=== PATIENT | female | born 1930 | race Caucasian/White ===

== ENCOUNTER 2016-08-09 14:50 | Inpatient (IN) | payer OTHER ==
[~2016-08-09] VITALS: Ht 157.5 cm; Wt 68.2 kg
--- NOTE | ~2016-08-09 | HC ---
[facility] [place] [address] CONSULTATION Name: JEIMY HUTCHINSON Room #: 311-P ADM IN M.R.#: [id number] Admission: 08/09/16 Attend Phys: Ap Oliveira MD Discharge: Date of : 31 Report #: [id number] THIS REPORT FOR: //name// CC: Ap Erwin MD DATE OF SERVICE: 08/10/2016 HISTORY OF PRESENT ILLNESS: The patient is an 86-year-old female with recent weakness and lightheadedness was evaluated by her primary physician, Dr. Bryant Erwin and lab work showed hemoglobin of 6.2. She was therefore sent to the emergency room for further evaluation. Hemoglobin on admission here was 6.5. She denies any obvious bright red blood per rectum or melena. She denies any abdominal pain. No previous history of GI bleed. No significant history of anemia in the past. She states her last colonoscopy was approximately 10 years ago. She believes she had polyps at that time. No previous history of upper endoscopy. She denies any NSAID use. She denies any dysphagia or odynophagia. There is no family history of colon cancer. Her weight has been stable. She denies any significant heartburn symptoms. She currently denies any chest pain or shortness of breath. No fevers or chills. PAST MEDICAL HISTORY: Hypertension, hyperlipidemia, diabetes type 2, history of hiatal hernia, asthma, osteoporosis, bilateral cataracts. MEDICATIONS ON ADMISSION: Advair, Cozaar, Crestor, Onglyza, Caltrate and Centrum Complete. REVIEW OF SYSTEMS: As per HPI. FAMILY HISTORY: Negative for colon cancer or inflammatory bowel disease. SOCIAL HISTORY: She denies any tobacco or alcohol use. PHYSICAL EXAMINATION: VITAL SIGNS: Temperature is 98.4, pulse 80, blood pressure 162/64 and respiratory rate is 16. GENERAL: She is alert and oriented times 3 in no acute distress. HEENT: Sclerae nonicteric. Oropharynx clear. NECK: Supple, without lymphadenopathy. CARDIOVASCULAR: Regular rate and rhythm. CHEST: Clear to auscultation bilaterally. ABDOMEN: Soft. She is nontender, nondistended, normoactive bowel sounds. EXTREMITIES: No cyanosis, clubbing or edema. [address] [address] CONSULTATION Name: JEIMY HUTCHINSON Room #: 311-P ADM IN M.R.#: [id number] Admission: 08/09/16 Attend Phys: Ap Oliveira MD Discharge: Date of : 31 Report #: [id number] LABORATORY DATA: Sodium today is 158, yesterday, her sodium was 138; potassium 3.7, chloride 94, bicarbonate 17, BUN 21, creatinine 1.1, calcium 7.5. Iron 18, percent sat is 4, TIBC is 438. INR 1.0. WBC is 7.1, hemoglobin 9.0, this is status post transfusions; MCV is 74.8, yesterday was 69.3; platelet count is 254. ASSESSMENT AND PLAN: Anemia, Hemoccult positive stool. The patient denies any obvious bright red blood per rectum or melena. Would recommend proceeding with an EGD and colonoscopy in the near future; however, her sodium today is 158, therefore, we would need to correct this initially. This may be a lab error as well. The plan will be for regular diet today, correct electrolytes and then plan on prepping tomorrow for colonoscopy and EGD on Friday. In the meantime, continue to monitor hemoglobin. Continue PPI therapy. Thank you for allowing me to participate in her care. <ELECTRONICALLY SIGNED> By: Anton Valdes MD 08/11/16 1217 1125 2232 Anton Valdes MD /nt
--- NOTE | ~2016-08-09 | 2DMMODE ---
[address] [place] [address] 2 D/M-MODE ECHOCARDIOGRAM Name: JEIMY HUTCHINSON Room #: 311-P ADM IN M.R.#: [id number] Admission: 08/09/16 Attend Phys: Juanito Santos, Discharge: Date of : 31 Date of Service: 08/22/16 1529 Report #: [id number] THIS REPORT FOR: //name// APPROVED REPORT Study performed: 08/22/2016 13:38:49 EXAM: Comprehensive 2D, Doppler, and color-flow Echocardiogram Patient Location: Bedside Room #: 311 Status: routine Other Information Study Quality: Adequate Indications Abnormal ECG Hypertension/HDD 2D Dimensions RVDd: 37.15 mm LVEF(%): 59.83 (>50%) IVSd: 8.86 (7-11mm) LVOT Diam: 19.90 (18-24mm) LVDd: 53.17 mm PWd: 8.58 (7-11mm) Ascending Ao: 29.15 (22-36mm) LVDs: 36.09 (25-40mm) Aortic Root: 27.07 mm Alexander's LVEF: 59.83 % Volumes Left Atrial Volume (Systole) Single Plane 4CH: 50.29 mL Single Plane 2CH: 63.75 mL LA ESV Index: 37.00 mL/m2 Aortic Valve AoV Peak Riccardo.: 1.78 m/s AO Peak Gr.: 12.74 mmHg LVOT Max P.25 mmHg LVOT Max V: 1.25 m/s SHERI Vmax: 2.18 cm2 AI Vmax: 4.64 m/s AI Ward: 3.31 m/s2 AI PHT: 407.39 ms Mitral Valve E/A Ratio: 0.5 MV Decel. Time: 235.65 ms [facility] [place] [address] 2 D/M-MODE ECHOCARDIOGRAM Name: HUTCHINSONJEIMY Room #: 311-P ADM IN M.R.#: [id number] Admission: 08/09/16 Attend Phys: Juanito Santos, Discharge: Date of : 31 Date of Service: 08/22/16 1529 Report #: [id number] MV E Max Riccardo.: 0.68 m/s MV A Riccardo.: 1.34 m/s MV PHT: 68.34 ms IVRT: 87.66 ms Pulmonary Valve PV Peak Riccardo.: 1.46 m/s PV Peak Gr.: 8.57 mmHg Pulmonary Vein P Vein S: 0.68 m/s P Vein A: 0.48 m/s P Vein D: 0.53 m/s P Vein S/D Ratio: 1.28 Tricuspid Valve TR Peak Riccardo.: 3.51 m/s RAP Estimate: 5.00 mmHg TR Peak Gr.: 49.18 mmHg RVSP: 54.00 mmHg Left Ventricle The left ventricle is normal size. There is normal LV segmental wall motion. There is normal left ventricular wall thickness. The left ventricular systolic function is normal. The left ventricular ejection fraction is within the normal range. LVEF is 60%. Mild diastolic dysfunction is present (impaired relaxation pattern). Right Ventricle The right ventricle is normal size. The right ventricular systolic function is normal. Atria Left atrium is dilated. The right atrium size is normal. Aortic Valve Aortic valve is mildly calcified. Mild aortic regurgitation. There is no aortic valvular stenosis. Mitral Valve Mitral valve leaflets are mildly calcified. No mitral regurgitation. No evidence of mitral valve stenosis. Tricuspid Valve The tricuspid valve is normal in structure. There is mild tricuspid regurgitation. The right atrial pressure is estimated at 5 mmHg. There is moderate pulmonary hypertension with an estimated PAP of 54 mmHg. [place] [id number] 2 D/M-MODE ECHOCARDIOGRAM Name: JEIMY HUTCHINSON Room #: 311-P [place] [facility]#: [id number] Admission: 08/09/16 Attend Phys: Juanito Santos, Discharge: Date of : 31 Date of Service: 08/22/16 1529 Report #: [id number] Pulmonic Valve The pulmonary valve is normal in structure. Trace pulmonic regurgitation. Great Vessels The aortic root is normal in size. The ascending aorta is normal in size. IVC is normal in size and collapses >50% with inspiration. Pericardium There is no pericardial effusion. <Conclusion> Mild to moderate aortic regurgitation. The left ventricular ejection fraction is within the normal range. LVEF 60%. There is normal LV segmental wall motion. Mild diastolic dysfunction is present (impaired relaxation pattern). Aortic valve is mildly calcified. Mild aortic regurgitation. No stenosis Mitral valve leaflets are mildly calcified. No mitral regurgitation. There is moderate pulmonary hypertension with an estimated pulmonary artery pressure of 55 mmHg. There is no pericardial effusion. <ELECTRONICALLY SIGNED> By: Alban Bey MD, FACC 08/22/16 1529 1529 1529 Alban Bey MD, FACC /INF
--- NOTE | ~2016-08-09 | HC ---
[facility] [place] [address] CONSULTATION Name: JEIMY HUTCHINSON Room #: 428-P ADM IN M.R.#: [id number] Admission: 08/09/16 Attend Phys: Juanito Santos MD Discharge: Date of : 31 Report #: [id number] THIS REPORT FOR: //name// CC: Juanito Erwin HISTORY OF PRESENT ILLNESS: The patient is an 86-year-old white female with hypertension, elevated lipids, diabetes mellitus type 2 was admitted with a low hemoglobin. EGD showed severe esophageal ring, which was dilated. Colonoscopy, however, showed a colonic mass ascending colon, and she was diagnosed with adenocarcinoma. She underwent laparoscopic right hemicolectomy on August 14. Postoperatively, they were incidentally noted pulmonary emboli and she underwent IVC filter. No anticoagulation secondary to the recent surgery. Hematology is involved. She had some acute renal insufficiency that has been monitored as well. She does have generalized weakness and debilitation and we are seeing her in rehabilitation medicine consultation. PAST MEDICAL HISTORY: Includes diabetes mellitus, hypertension, elevated lipids. 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 Also includes hiatal hernia, asthma, and elevated cholesterol. ALLERGIES: PENICILLIN. PAST SURGICAL HISTORY: Includes D and C, colonoscopy, bilateral cataract implants. HABITS: Nonsmoker, no alcohol. SOCIAL HISTORY: Lives in a house alone, five steps in, 12 inside. Did not utilize gait aids. There is a son and daughter that can be assisting her at home when she is ready to return back home. REVIEW OF SYSTEMS: Complains of diarrhea with attempting to get out. Did not offer any complaints of chest pain, shortness of breath, abdominal discomfort. Complains of generalized weakness. No focal extremity pain complaints. No complaints of headache. PHYSICAL EXAMINATION: GENERAL: An 86-year-old white female appeared somewhat younger than stated age. She was pleasant, alert, oriented, appropriate. VITAL SIGNS: Last recorded temperature 98.8, pulse 95, respirations 18, blood pressure 139/73. Facies are symmetric. Nasal prong O2 is in place at 2 liters. ABDOMEN: Dressed. EXTREMITIES: She has functional range of motion of both upper extremities with strength of grade 4- to 4/5. DTRs are trace to 1. Lower extremities, no focal calf swelling, functional range of motion with strength grade 4-/5. DTRs are trace to 1. Tone appeared to be intact. She is min assist with sit to stand. [address] [address] CONSULTATION Name: JEIMY HUTCHINSON Room #: 428-P ADM IN M.R.#: [id number] Admission: 08/09/16 Attend Phys: Juanito Santos MD Discharge: Date of : 31 Report #: [id number] She has ambulated up to 50 feet contact guard with a front-wheeled walker. ASSESSMENT: An 86-year-old white female with the following problem list: 1. Medical complexity with generalized debilitation. 2. Adenocarcinoma status post laparoscopic right hemicolectomy, July 2016. 3. Pulmonary embolism status post IVC filter. Plan is to start anticoagulation, but hemoglobin needs to stabilize first. 4. Iron deficiency anemia. 5. Acute renal insufficiency, improving. 6. Diabetes mellitus type 2. 7. Hypertension. 8. Asthma. 9. Diarrhea, rule out Clostridium difficile. PLAN: Therapies are working with her to improve her strength and endurance, independence with mobility and ADLs. Insurance will need to be checked regarding rehab therapy options. ADDENDUM: The patient is noted to be out of network for our acute [address] [place] [address] inpatient rehab man. Case management is working on other options. Thank you for asking us to assist in this patient's care. <ELECTRONICALLY SIGNED> By: Pritesh Wiley MD 08/23/16 1556 1557 0404 Pritesh Wiley MD /nt
--- NOTE | ~2016-08-09 | S ---
[facility] [address] [employer] [place] [address] SURGICAL PATH RPT PROCEDURE Name: JEIMY HUTCHINSON Room #: 311-P ADM IN M.R.#: [id number] Admission: 08/09/16 Date of : 31 Discharge: Report #: [id number] Path Case #: [id number] PATHOLOGY REPORT COLLECTION DATE: 08/14/2016 RECEIVED DATE: 08/15/2016 SUBMITTING PHYS: Dr. Teddy Chowdhury OTHER PHYS: Dr. Ap Erwin SPECIMEN(S) RECEIVED: A.Right hemicolectomy * * * * * * * * * * * * FINAL DIAGNOSIS: A. Large intestine, terminal ileum and appendix, right hemicolectomy: - INVASIVE MODERATELY DIFFERENTIATED COLONIC ADENOCARCINOMA INVADING THROUGH THE VISCERAL SEROSA. - Separate tubular adenoma without high grade dysplasia. - Appendix showing a sessile serrated adenoma without dysplasia. - Margins widely free of dysplasia or malignancy; closest proximal margin is 11.2 cm away. -THREE LYMPH NODES WITH METASTATIC CARCINOMA OF SIXTEEN SAMPLED (06/13) SYNOPTIC CANCER STAGING REPORT SPECIMEN Specimen: Terminal ileum Cecum Appendix Ascending colon Procedure: Right hemicolectomy TUMOR Primary Tumor Site: Right (ascending) colon Histologic Type: Adenocarcinoma Histologic Grade: Low-grade (well differentiated to moderately differentiated) Tumor Size: Greatest dimension (cm): 4.3 Additional Dimension (cm): 3.2 Tumor Deposits: Not identified Tumor Extent Site(s) of Direct Extent of Tumor: None identified Microscopic Tumor Extension: Tumor penetrates to the surface of the visceral peritoneum (serosa) Macroscopic Tumor Perforation: Present Accessory Tumor Findings [facility] [address] [place] [address] SURGICAL PATH RPT PROCEDURE Name: JEIMY HUTCHINSON Room #: 311-P ADM IN M.R.#: [id number] Admission: 08/09/16 Date of : 31 Discharge: Report #: [id number] Path Case #: [id number] Lymph-Vascular Invasion: Present Perineural Invasion: Not identified MARGINS All margins uninvolved by invasive carcinoma Distance of Invasive Carcinoma from Closest Margin: Specify (cm): 2.4 Specify Margin: Circumferential (Radial) or Mesenteric For Resection Specimens Only Proximal Margin: Uninvolved by invasive carcinoma Distance of Tumor from Margin: Specify (cm): 11.2 Distal Margin: Uninvolved by invasive carcinoma Distance of Tumor from Margin (required only for rectal tumors): Specify (cm): 19 Circumferential (Radial) Margin: Not applicable Mesenteric Margin: Uninvolved by invasive carcinoma Distance of Tumor from Margin: Specify (cm): 2.4 LYMPH NODES Regional Lymph Nodes: Number of Lymph Nodes Examined: Specify number: 16 Number of Lymph Nodes Involved: Specify number: 3 STAGE (PTNM) Primary Tumor (pT): pT4a: Tumor penetrates the visceral peritoneum Regional Lymph Nodes (pN): pN1b: Metastasis in 2 to 3 regional lymph nodes PATHOLOGIST: Sharita Hoffman M.D. REPORT ELECTRONICALLY SIGNED BY: Sharita Hoffman M.D. DATE/TIME: 08/16/2016 17:25 * * * * * * * * * * * * GROSS PATHOLOGY: The specimen is received in formalin, labeled "[facility] hemicolectomy" is a segment of small bowel (5.5 cm in length by 4.0 cm in circumference) with attached colon (34.2 cm in length by 7.2 cm in circumference) and unremarkable appendix (6.2 cm in length by 0.8 and 1 diameter). The serosa is soares-pink, smooth and displays creeping adipose tissue on the proximal colon segment. The mesentery runs the entire length of the specimen and measures up to 4.4 cm in thickness. Adjacent to the creeping adipose tissue, on the mesentery, is a 2 x 1.2 cm focal area of [place] [id number] SURGICAL PATH RPT PROCEDURE Name: JEIMY HUTCHINSON Room #: 311-P [facility] IN M.R.#: [id number] Admission: 08/09/16 Date of : 31 Discharge: Report #: [id number] Path Case #: [id number] area is 11.2 cm from the proximal margin and widely free of the distal margin. The specimen is opened to reveal a soares-pink mucosa undulating folds and a 4.3 x 3.2 cm semi-circumferential ulcerated lesion located 10.6 cm from the proximal margin, 2.4 cm from the mesenteric margin, approaches the puckered area on the mesentery and is widely free of the distal margin. Sectioning through the lesion reveals invasion through the muscularis propria and into the adjacent mesentery. Located 1.4 cm distal to the ulcerated lesion is a 0.6 x 0.5 x 0.5 cm sessile lesion which is grossly confined to the superficial mucosa. There is a 2 x 1.4 cm, well-demarcated perforation located 2.2 cm distal to the ulcerated lesion. Identified within the mesentery are possible lymph nodes ranging in size from 0.3 x 0.2 x 0.2 up to 0.9 x 0.5 x 0.4 cm. Sectioning through the appendix reveals a diffusely patent lumen. Also received in the same container is a piece of omentum measuring 28.4 x 10.5 x 2.0 cm. Sectioning through the omentum reveals diffuse soft, lobular parenchyma. Section code: A1-proximal margin, A2-distal margin, A3-mesenteric margin, A4-puckered mesenteric lesion, A5-lesion with adjacent mesentery, A6-lesion with adjacent normal mucosa A7-polypoid lesion entirely submitted, A8-retail service representative sections adjacent to perforation, A9-retail service representative sections of appendix, A10-6 possible lymph nodes, A11-6 possible lymph nodes, A12-one possible lymph node. (GAY; 08/15/2016) CLINICAL HISTORY: Colon mass. INITIAL CPT CODE(S): A; 25479 Professional services performed by [employer] at [facility] [address] [place] [address] Technical services performed by [employer] at [address] [place] [address], [address], [place] [address]. [facility] [address] [address] PHONE: [phone] DIRECTOR: Ketan Ford M.D. * * * END OF REPORT * * *
--- NOTE | ~2016-08-09 | EKG ---
[address] [address] ELECTROCARDIOGRAM REPORT Name: JEIMY HUTCHINSON Room #: 311-P ADM IN M.R.#: [id number] Admission: 08/09/16 Attend Phys: Ap Oliveira MD Discharge: Date of : 31 Report #: [id number] THIS REPORT FOR: //name// [facility] ED Test Date: 2016-08-09 Test Time: 15:49:49 Pat Name: JEIMY HUTCHINSON Department: Room: [facility] Gender: F [employer] Professor: TIMOTHY : 1930 Requested By: Teddy Gracia Order Number: [id number] MD: Otilio Pate Measurements Intervals [place] Rate: 86 P: 31 IN: 158 QRS: 13 QRSD: 129 T: 27 QT: 393 QTc: 470 Interpretive Statements Sinus rhythm Right bundle branch block Borderline ST elevation, anterior leads Compared to ECG 02/21/2012 07:55:45 Right bundle-branch block now present ST (T wave) deviation now present Electronically Signed On 08-12-2016 8:28:56 CDT by Otilio Pate [email or web address] <ELECTRONICALLY SIGNED> By: Otilio Pate MD 08/12/16 0828 1549 1549 Otilio Pate MD /EPI
--- NOTE | ~2016-08-09 | O ---
[facility] [place] [address] OPERATIVE REPORT Name: JEIMY HUTCHINSON Room #: 311-P ADM IN M.R.#: [id number] Admission: 08/09/16 Attend Phys: Juanito Santos MD Discharge: Date of : 31 Report #: [id number] THIS REPORT FOR: //name// CC: Juanito Erwin DATE OF SERVICE: 08/14/2016 PREOPERATIVE DIAGNOSES: Right colon mass, newly diagnosed adenocarcinoma. POSTOPERATIVE DIAGNOSES: Right colon mass, newly diagnosed adenocarcinoma. SURGEON: Teddy Chowdhruy MD [employer] OPERATOR: Beba Luna, nurse practitioner. PROCEDURE: 1. Laparoscopic right hemicolectomy. 2. Placement of external negative pressure therapy device and (Prevena). ANESTHESIA: General endotracheal anesthesia. ESTIMATED BLOOD LOSS: 200 mL. SPECIMENS TO PATHOLOGY: Right hemicolectomy. FINDINGS: Firm mass at the hepatic flexure significant surrounding inflammatory response [id number] stapled anastomosis performed between the terminal ileum and transverse colon, buttressed with omentum. URINE OUTPUT: 350 mL per Soni catheter, which was left in to dependent drainage. IV FLUIDS: 2800 mL of crystalloid. INDICATION FOR PROCEDURE: The patient is a very pleasant 86-year-old female who has had recent anemia of unclear source. Colonoscopy was performed recently that showed a large partially obstructing mass in the hepatic flexure region of the colon consistent with malignancy, this was too large to be removed with endoscopic means therefore general surgery was consulted for surgical intervention. Detailed discussion of the risks and benefits of surgical intervention was held with the patient, risks including bleeding, pain, infection, recurrence, anastomotic leak, anastomotic stricture, possible need for conversion to open procedure, possible damage to the surrounding structures such as small bowel, colon, stomach, liver, gallbladder and ducts, kidney, ureter, bladder, duodenum and postoperative abscess formation as well as other [facility] [address] [place] [address] OPERATIVE REPORT Name: JEIMY HUTCHINSON Room #: 311-P ADM IN M.R.#: [id number] Admission: 08/09/16 Attend Phys: Juanito Santos MD Discharge: Date of : 31 Report #: [id number] possible complications, which may not have been specifically mentioned were all possible albeit unlikely. All questions were answered to the patient's and family's satisfaction. Written informed consent was obtained. DESCRIPTION OF PROCEDURE: The patient was brought to the operating room and placed in a supine position. Timeout was taken to verify the patient's identity and to plan the procedure. SCDs were in place on the lower extremities bilaterally. Preoperative antibiotics were administered. Anesthesia was induced. The patient was intubated. Abdomen was sterilely prepped and draped in standard fashion after Soni catheter had been placed to dependent drainage. A supraumbilical incision was made after local anesthetic had been infiltrated. Cut down was performed to the fascia, which was grasped and retracted anterior. This was opened carefully with Metzenbaum scissors. Trocar was inserted after digital palpation of the peritoneal cavity had been performed and pneumoperitoneum was created. Trocar was upsized from a 5 mm to a 12 mm port and inspection of the viscera showed that no injury had occurred upon entry. A subxiphoid 5-mm port was placed under direct visualization approximately 4 fingerbreadths above the supraumbilical port. A right lower quadrant port was placed, which was a 5-mm port under direct visualization after local anesthetic had been infiltrated. The patient was placed in the reverse Trendelenburg, right side up position. The stomach and greater omentum were visualized and this was retracted laterally. The transverse colon was identified and this was retracted anterior. Dissection was then carried out in the avascular plane toward the right lateral wall was performed using Sonicision energy device and blunt dissection. The transverse colon was retracted anterior throughout. The peritoneum over the hepatic flexure and right phrenicocolic ligament was sectioned. Blunt dissection was then utilized to raise the hepatic flexure and transverse colon anterior off the surface of the kidney and duodenum. The patient was placed in further steep right side up position to allow gravity to facilitate retraction away from the lateral abdominal wall attachments. The right pericolonic was then opened along the ascending colon working superior to inferior down toward the cecum. Toldt fascia was opened using blunt dissection as well as Sonicision energy device. A separate 5 mm right upper quadrant trocar had been placed under direct vision to facilitate retraction during this process. The patient was then placed in Trendelenburg position. The cecum and appendix were grasped with a locking grasper at the base of the appendix. Right colon and terminal ileum were moved medial. The peritoneum along the base of the small bowel mesentery was then sectioned carefully after blunt dissection using Sonicision energy device. Next, the periumbilical port incision was connected to the epigastric port to create an approximate 4 cm opening in which the wound projector and hand assist device could be placed. The right colon and terminal ileum were then exteriorized and the transverse colon was transected just proximal to the middle colic vessels using a linear cutting stapler with blue load 75 mm 1 firing. The terminal ileum was transected approximately 8 cm proximal to the ileocecal valve in similar fashion. The mesentery and mesocolon were then transected using the LigaSure device in a V-shape fashion down toward [address] [place] [address] OPERATIVE REPORT Name: JEIMY HUTCHINSON Room #: 311-P ADM IN M.R.#: [id number] Admission: 08/09/16 Attend Phys: Juanito Santos MD Discharge: Date of : 31 Report #: [id number] the supplying vessels. Good hemostasis was verified. There were several sites of oozing which required 3-0 PDS fhmxug-qb-pbkvo suture for better hemostatic control. The specimen was delivered and passed off as right hemicolectomy. The distal ileum and transverse colon were then brought into apposition and anchored in place for a woqb-sh-fuky stapled anastomosis along the antimesenteric borders, 3 sites of 3-0 PDS interrupted sutures were utilized. Sterile blue towels were placed around the upper midline to protect from any spillage. The corners of the transverse colon and terminal ileum were transected using Metzenbaum scissors and linear cutting stapler was fired to create a common channel between the terminal ileum and transverse colon with a stapled gmud-ni-egcv anastomosis. The common channel was then closed using TX stapler with blue load 1 firing. This was then transected using 10 blade. Careful palpation showed that the lumen was widely patent up to 3 fingerbreadths. The corners of the staple line that had close to the common channel was reinforced using 3-0 imbricated PDS suture. Tension relieving suture was placed at the deeper aspect of the anastomosis. The mesenteric defect was then closed using running 3-0 PDS. The right lower quadrant and right upper quadrant were then irrigated with copious warmed sterile saline and suctioned with a pool sucker. Anastomosis was placed back within the abdominal cavity. Hand assist GelPort device was utilized to create a seal and pneumoperitoneum was then reestablished. Inspection of the structure showed the anastomosis to be without twisting and poor hemostasis to have been maintained. Shreyas was applied along the mesenteric defect at sites that had shown oozing previously. The 5 mm ports were then removed under direct vision and the upper midline incision after hand assist device had been removed was closed using running looped #1 PDS. Skin was closed externally using skin caio and Prevena external negative pressure therapy device was applied over the upper midline incision. Sterile dressings were applied at each of the other sites. Oral gastric tube that had been placed earlier was extracted as very low output had been seen throughout the case. Soni catheter was left in place. At this point, the case was ended. All instrumentation had been extracted and accounted for. All counts were correct per nurse report. The patient was extubated, awakened, and taken to the postoperative care unit in stable condition. <ELECTRONICALLY SIGNED> By: Teddy Chowdhury MD 08/22/16 0839 [id number] Teddy Chowdhury MD /nt
--- NOTE | ~2016-08-09 | HC ---
[facility] [place] [address] CONSULTATION Name: JEIMY HUTCHINSON Room #: 311-P ADM IN M.R.#: [id number] Admission: 08/09/16 Attend Phys: Ap Oliveira MD Discharge: Date of : 31 Report #: [id number] THIS REPORT FOR: //name// CC: Ap Erwin DATE OF SERVICE: 08/13/2016 CHIEF COMPLAINT: Colon mass. HISTORY OF PRESENT ILLNESS: The patient is a very pleasant 86-year-old female patient who underwent colonoscopy yesterday with Dr. Joel Enamorado with gastroenterology. This demonstrated a partially obstructing fungating friable mass in the mid ascending colon. This had the appearance of malignancy and was ulcerated. This was a circumferential mass. There was stigmata of bleeding from that mass. Biopsies were taken. CT scan of the abdomen and pelvis with contrast was obtained last night and this demonstrated mass and colonic wall thickening in the hepatic flexure region suggestive of tumor. Some adjacent enlarged lymph nodes were also noted and adjacent fluid and inflammatory stranding was also noted, pulmonary emboli were noted. A lobular liver suggesting possible cirrhosis was appreciated. General surgery was consulted for potential surgical intervention. Of note, the patient was admitted with weakness and lightheadedness and was noted to have hemoglobin of 6.2. She denied any obvious melena or hematochezia. She denied abdominal pain. She had had colonoscopy approximately 10 years ago and had polyps at that time. No history of nonsteroidal antiinflammatory drug use. PAST MEDICAL HISTORY: Positive for cataracts, osteoporosis, hypertension, hyperlipidemia, type 2 diabetes, hiatal hernia, asthma. HOME MEDICATIONS: Include Cozaar, Advair, Crestor, Onglyza, Caltrate and Centrum. PAST SURGICAL HISTORY: She did have a dilatation and curettage per gynecology in the distant past and prior colonoscopy. REVIEW OF SYSTEMS: A 10-point review of systems otherwise negative except for that mentioned in the HPI. PHYSICAL EXAMINATION: GENERAL: The patient is awake, alert and oriented. She is in no acute distress. She does give appropriate history. VITAL SIGNS: She is afebrile, normotensive, pulse in the 70s-80s, respirations 15-16. HEENT: Head is atraumatic, normocephalic. No icterus is appreciated. Oral cavity is clear. Mucosae are pink and moist. No icterus is appreciated. NECK: Supple, without jugular venous distention. HEART: Regular without murmur. LUNGS: [facility] [address] [place] [address] CONSULTATION Name: JEIMY HUTCHINSON Room #: 311-P [facility] IN ..#: [id number] Admission: 08/09/16 Attend Phys: Ap Oliveira MD Discharge: Date of : 31 Report #: [id number] Clear to auscultation. No respiratory distress. ABDOMEN: Soft, nondistended, nontender to palpation. EXTREMITIES: Without clubbing, cyanosis or edema. LABORATORY STUDIES: Reviewed. White count is 6.6, hemoglobin of 8.3, platelets of 229. Basic metabolic profile shows creatinine of 1.1, BUN of 17, potassium 3.9, albumin of 2.6, glucose in the low 100 range. IMPRESSION: 86-year-old female with partially obstructing ascending colon mass with ulcerative appearance consistent with possible malignancy. Biopsy from colonoscopy pending. Lymphadenopathy in this region noted on CT scan. Pulmonary emboli also noted on CT scan, although the patient is maintaining her saturations well on room air without obvious pulmonary compromise. RECOMMENDATIONS: 1. Have consulted Interventional Radiology for inferior vena cava filter placement as the patient will be unable to undergo full anticoagulation at this time pending operative intervention. 2. Plan for laparoscopic right hemicolectomy with primary anastomosis in the operating room in the near future. Detailed discussion of risks and benefits of this procedure held with the patient and her family at the bedside. All questions were answered to their satisfaction at this time. Consultation very much appreciated. Will continue to follow closely and make further recommendations based upon clinical status, laboratory and radiographic findings. <ELECTRONICALLY SIGNED> By: Teddy Chowdhury MD 08/14/165 1623 21 Teddy Chowdhury MD /nt
--- NOTE | ~2016-08-09 | S ---
[facility] [place] [address] SURGICAL PATH RPT PROCEDURE Name: LE RUBALCAVA Room #: 311-P ADM IN M.R.#: [id number] Admission: 08/09/16 Date of : 31 Discharge: Report #: [id number] Path Case #: [id number] PATHOLOGY REPORT COLLECTION DATE: 08/12/2016 RECEIVED DATE: 08/12/2016 SUBMITTING PHYS: Dr. Joel Enamorado OTHER PHYS: Dr. Bryant Oliveira ADDENDUM REPORT (Order Date: 08/15/2016 12:59) ADDENDUM COMMENT: At the request of the oncologist, mismatch repair (MMR) protein immunohistochemical staining was performed. Specimen: Formalin fixed paraffin embedded tissue Specimen ID: [id number] Block A1 Reason for testing: To evaluate for evidence of defective mismatch repair proteins. Method: Immunohistochemical staining for the presence or absence of protein expression of one or more of the following MMR protein markers: MLH1, MSH2, MSH6 and PMS2. Tumor type: Invasive adenocarcinoma, moderate to poorly differentiated. Results: MLH1 - Preserved MSH2 - Preserved MSH6 - Preserved PMS2 - Preserved Mismatch Repair Status: MMR Proficient (MMR-P) Interpretation: (MMR-P) All four MMR proteins are preserved within tumor cells. This suggests the presence of normal DNA mismatch repair function within the tumor and an observable defect in mismatch repair is not identified. The likelihood that this patient has an inherited germline mutation syndrome due to defective mismatch repair is reduced but not totally eliminated. If the patient has a strong personal or family history of HPNCC/Moran syndrome related cancers (colorectal, endometrial, gastric, ovarian, pancreatic, ureter/renal pelvis, biliary tract, brain, small bowel and Sudbury-Dwayne syndrome), consider MSI testing by PCR methodology. Suggest clinical correlation and follow up. These test results are designed for screening purposes only and are useful tools in identifying cancer patients that are more likely to have Moran Syndrome related diagnoses. Tests should be interpreted in the context of clinical findings, family history and laboratory data. Abnormal IHC results for MMR protein expression are not considered diagnostic for Moran Syndrome. [facility] [place] [address] SURGICAL PATH RPT PROCEDURE Name: LE RUBALCAVA Room #: 311-P [facility] IN M.R.#: [id number] Admission: 08/09/16 Date of : 31 Discharge: Report #: [id number] Path Case #: [id number] [facility] [address] [facility] [place] [address] Technical services performed by [facility] at [address] [place] [address], [address] [place] [address]. ELECTRONICALLY SIGNED BY: Carrol Parnell M.D. DATE/TIME:08/15/2016 19:49 SPECIMEN(S) RECEIVED: A.Bx at ascending colon mass B.Polyp at descending colon * * * * * * * * * * * * FINAL DIAGNOSIS: A. "Bx at ascending colon mass", biopsy: - INVASIVE ADENOCARCINOMA, MODERATE TO POORLY DIFFERENTIATED, WITH OVERLYING ULCERATION. (SEE COMMENT) B. 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 COMMENT: Specimens A and B are both co-reviewed with Dr. Sharita Hoffman. The case is discussed with Madina, nurse with Dr. Joel Enamorado, on 08/14/2016 at approximately 1:30 PM. (CLW:minesh; d/t: 08/14/2016) PATHOLOGIST: Carrol Parnell M.D. REPORT ELECTRONICALLY SIGNED BY: Carrol Parnell M.D. DATE/TIME: 08/14/2016 13:38 * * * * * * * * * * * * GROSS PATHOLOGY: A. Received in formalin labeled "Le Rubalcava, biopsy at ascending colon," are four segments of soares soft tissue measuring 1.4 x 1.2 x 0.3 cm in aggregate dimensions and ranging from 0.2 to 0.5 cm in maximum dimension. The specimen is submitted entirely in cassette A1. B. Received in formalin labeled "Le Rubalcava, polyp at descending colon," are two segments of soares soft tissue measuring 0.5 x 0.5 x 0.2 cm in aggregate dimensions and ranging from 0.3 to 0.5 cm in maximum dimension. The specimen is submitted entirely in cassette B1. (CAA; 08/13/2016) [address] [address] SURGICAL PATH RPT PROCEDURE Name: LE RUBALCAVA Room #: 311-P [facility] IN M.R.#: [id number] Admission: 08/09/16 Date of : 31 Discharge: Report #: [id number] Path Case #: [id number] CLINICAL HISTORY: Anemia INITIAL CPT CODE(S): A; 08703, 42233, 23223, 69195, 74266, 44133, 56813, 83509, 73739 B; 44050 Professional services performed by [facility] at [facility] [address] [place] [address] Technical services performed by [facility] at [address] [place] [address], [address], [place] [address]. [facility] [address] [place] [address] PHONE: [phone] DIRECTOR: Ketan Ford M.D. * * * END OF REPORT * * *
[~2016-08-09 14:50] MED LIST: ADVAIR 100-501 EACH INH; ADVAIRDISKUS IH; CALTRATE 600 +1 EACH; CALTRATE-600 W1 EACH PO; CENTRUM COMPLE1 EACH PO; COZAAR100 MG PO; CRESTOR PO; CRESTOR20 MG PO; DIOVAN PO; GLUCOPHAGE500 MG PO; ONGLYZA5 MG PO
[2016-08-09 14:56] VITALS: BP 130/49
[2016-08-09 15:27] LABS: ABSOLUTE NEUTROPHILS 6.2 thou/uL (1.4-8.2); BASOPHILS 0.9 % (0.0-2.0); EOSINOPHILS 1.7 % (0.0-3.0); HEMATOCRIT 21.5 % (37.0-47.0); LYMPHOCYTES 17.4 % (24.0-44.0); MCH 21.1 pg (26.0-34.0); MCHC 30.4 g/dL (28.0-37.0); MCV 69.3 fL (80.0-100.0); PLATELET COUNT 332 thou/uL (150-400); RDW 17.6 % (10.5-14.5); WBC 8.7 thou/uL (4.0-11.0)
[2016-08-09 15:28] LABS: MANUAL DIFF NO
[2016-08-09 15:29] LABS: HEMOGLOBIN 6.5 gm/dL (12.0-15.0)
[2016-08-09 15:36] LABS: CALCIUM 9.2 mg/dL (8.5-10.1); CREATININE 1.9 mg/dL (0.6-1.0); POTASSIUM 4.3 mmol/L (3.5-5.1)
[2016-08-09 15:41] LABS: PROTIME 10.8 Seconds (9.3-11.4)
[2016-08-09 16:05] LABS: FERRITIN 10 ng/mL (8-252)
[2016-08-09 17:09] VITALS: BP 132/66; BP 136/56; BP 145/58
[2016-08-09] MEDS ORDERED: TRIAMCINOLONE A80 G2 TOP (18:24)
[2016-08-09] MEDS ORDERED: EMOLLIENT500 GM TP (18:24)
[2016-08-09] MEDS ORDERED: INDAPAMIDE2.5 MG PO (18:25)
[2016-08-09] MEDS ORDERED: VIACTIV SOFT C1 EACH PO (18:26)
[2016-08-09] MEDS ORDERED: TRAZODONE HCL50 MG PO (18:26)
[2016-08-09] MEDS ORDERED: CENTRUM SILVER1 EAC4 PO (18:27)
[2016-08-09] MEDS ORDERED: ADVAIR HFA 230M12 GM INH (18:28)
[2016-08-09] MEDS ORDERED: FLUCONAZOLE200 MG PO (18:28)
[2016-08-09] MEDS ORDERED: ONGLYZA5 MG PO (18:30)
[2016-08-09 22:05] VITALS: BP 153/65
[2016-08-09 23:20] VITALS: BP 151/56
[2016-08-10 02:31] VITALS: BP 153/69; BP 166/66
[2016-08-10 03:01] VITALS: BP 153/69
[2016-08-10 08:41] VITALS: BP 162/64
[2016-08-10 10:12] LABS: MCHC 32.1 g/dL (28.0-37.0); RBC 3.74 mil/uL (4.20-5.00); RDW 20.2 % (10.5-14.5); WBC 7.1 thou/uL (4.0-11.0)
[2016-08-10 10:14] LABS: MCV 74.8 fL (80.0-100.0)
[2016-08-10 10:28] LABS: CALCIUM 7.5 mg/dL (8.5-10.1); CREATININE 1.1 mg/dL (0.6-1.0); POTASSIUM 3.7 mmol/L (3.5-5.1)
[2016-08-10 14:13] LABS: CALCIUM 8.5 mg/dL (8.5-10.1); CREATININE 1.3 mg/dL (0.6-1.0); POTASSIUM 3.9 mmol/L (3.5-5.1)
[2016-08-10 16:22] LABS: HEMATOCRIT 27.1 % (37.0-47.0); HEMOGLOBIN 8.9 gm/dL (12.0-15.0)
[2016-08-10 17:55] VITALS: BP 138/83
[2016-08-10 20:10] VITALS: BP 145/62
[2016-08-11 04:30] VITALS: BP 129/67
[2016-08-11 08:15] VITALS: BP 149/71
[2016-08-11 13:36] LABS: CALCIUM 8.2 mg/dL (8.5-10.1); CREATININE 1.2 mg/dL (0.6-1.0); POTASSIUM 4.2 mmol/L (3.5-5.1)
[2016-08-11 16:33] VITALS: BP 162/67
[2016-08-11 19:17] VITALS: BP 110/83
[2016-08-12 04:19] VITALS: BP 164/62
[2016-08-12 06:27] LABS: HEMATOCRIT 25.1 % (37.0-47.0); HEMOGLOBIN 8.3 gm/dL (12.0-15.0); MCH 24.3 pg (26.0-34.0); MCV 73.5 fL (80.0-100.0); RBC 3.41 mil/uL (4.20-5.00); RDW 20.9 % (10.5-14.5); WBC 6.6 thou/uL (4.0-11.0)
[2016-08-12 06:44] LABS: CALCIUM 8.6 mg/dL (8.5-10.1); CREATININE 1.1 mg/dL (0.6-1.0); POTASSIUM 3.9 mmol/L (3.5-5.1)
[2016-08-12 08:35] VITALS: BP 151/62
[2016-08-12 18:29] VITALS: BP 150/80
[2016-08-12 19:43] VITALS: BP 149/79
[2016-08-13 04:42] VITALS: BP 140/63
[2016-08-13 08:00] VITALS: BP 126/60
[2016-08-13 11:28] VITALS: BP 126/60
[2016-08-13 15:30] VITALS: BP 160/61
[2016-08-13 17:01] LABS: HEMATOCRIT 26.4 % (37.0-47.0); HEMOGLOBIN 8.5 gm/dL (12.0-15.0); MCH 23.9 pg (26.0-34.0); MCV 74.5 fL (80.0-100.0); RBC 3.55 mil/uL (4.20-5.00); RDW 21.4 % (10.5-14.5); WBC 7.1 thou/uL (4.0-11.0)
[2016-08-13 17:15] LABS: ALBUMIN 2.5 g/dL (3.4-5.0); CALCIUM 8.5 mg/dL (8.5-10.1); POTASSIUM 3.1 mmol/L (3.5-5.1); TOTAL BILIRUBIN 0.3 mg/dL (<0.1-1.0); TOTAL PROTEIN 6.1 g/dL (6.4-8.2)
[2016-08-13 20:00] VITALS: BP 148/69
[2016-08-14] VITALS (11 sets, daily range): BP systolic 132–161; BP diastolic 60–79
[2016-08-14 10:15] LABS: HEMATOCRIT 28.5 % (37.0-47.0); HEMOGLOBIN 9.1 gm/dL (12.0-15.0); MCH 23.7 pg (26.0-34.0); MCHC 31.9 g/dL (28.0-37.0); MCV 74.2 fL (80.0-100.0); RBC 3.84 mil/uL (4.20-5.00); RDW 21.5 % (10.5-14.5); WBC 7.3 thou/uL (4.0-11.0)
[2016-08-14 19:51] LABS: HEMATOCRIT 30.1 % (37.0-47.0); HEMOGLOBIN 9.4 gm/dL (12.0-15.0); MCHC 31.2 g/dL (28.0-37.0); MCV 76.9 fL (80.0-100.0); PLATELET COUNT 244 thou/uL (150-400); RBC 3.91 mil/uL (4.20-5.00); RDW 21.3 % (10.5-14.5); WBC 6.1 thou/uL (4.0-11.0)
[2016-08-14 19:53] LABS: MANUAL DIFF YES
[2016-08-14 20:02] LABS: ALBUMIN 2.4 g/dL (3.4-5.0); CALCIUM 7.9 mg/dL (8.5-10.1); CREATININE 0.9 mg/dL (0.6-1.0); MAGNESIUM 1.5 mg/dL (1.8-2.4); POTASSIUM 3.7 mmol/L (3.5-5.1); TOTAL BILIRUBIN 0.4 mg/dL (<0.1-1.0); TOTAL PROTEIN 5.4 g/dL (6.4-8.2)
[2016-08-14 20:19] LABS: ABSOLUTE NEUTROPHILS 4.9 thou/uL (1.4-8.2); TOTAL CELL COUNT 100
[2016-08-14 20:20] LABS: ANISOCYTOSIS 2+; MICROCYTES 1+; SCHISTOCYTES FEW
[2016-08-14 22:34] LABS: ABG SAMPLE TYPE ARTERIAL; BE(vivo) -6.7 mmol/L (-2 to +3); HCO3 18.4 mmol/L (22.0-26.0); O2Hb 92.1 % (92.0-98.0); PCO2 35.1 mmHg (35.0-45.0); PO2 71.1 mmHg (80.0-100.0); STICK SITE R.BRACHIAL; pH 7.337 (7.360-7.450); sO2 93.5 % (92.0-98.0); tCO2 19.5 mmol/L (24.0-30.0)
[2016-08-14 22:35] LABS: ABG COMMENT ROOM AIR
[2016-08-15 04:55] VITALS: BP 151/79
[2016-08-15 05:14] LABS: HEMATOCRIT 27.4 % (37.0-47.0); HEMOGLOBIN 8.6 gm/dL (12.0-15.0); MCH 23.6 pg (26.0-34.0); MCHC 31.5 g/dL (28.0-37.0); RBC 3.65 mil/uL (4.20-5.00); RDW 21.5 % (10.5-14.5); WBC 13.7 thou/uL (4.0-11.0)
[2016-08-15 05:33] LABS: MANUAL DIFF YES
[2016-08-15 05:43] LABS: ALBUMIN 2.6 g/dL (3.4-5.0); CALCIUM 7.7 mg/dL (8.5-10.1); CREATININE 1.1 mg/dL (0.6-1.0); MAGNESIUM 1.3 mg/dL (1.8-2.4); PHOSPHORUS 4.5 mg/dL (2.5-4.9); POTASSIUM 3.8 mmol/L (3.5-5.1); TOTAL BILIRUBIN 0.5 mg/dL (<0.1-1.0); TOTAL PROTEIN 5.2 g/dL (6.4-8.2)
[2016-08-15 06:28] LABS: ABSOLUTE NEUTROPHILS 12.9 thou/uL (1.4-8.2); PLATELET COUNT 217 thou/uL (150-400); TOTAL CELL COUNT 100
[2016-08-15 06:29] LABS: ANISOCYTOSIS 2+; MACROCYTES 1+; MICROCYTES 1+; POLYCHROMASIA 1+
[2016-08-15 06:32] LABS: SCHISTOCYTES RARE
[2016-08-15 07:13] LABS: HEPATITIS C VIRUS AB <0.1 (0.0-0.9)
[2016-08-15 09:00] VITALS: BP 132/52
[2016-08-15 17:15] VITALS: BP 105/55
[2016-08-15 20:00] VITALS: BP 118/53
[2016-08-16 04:00] VITALS: BP 117/55
[2016-08-16 06:25] LABS: HEMATOCRIT 24.5 % (37.0-47.0); HEMOGLOBIN 7.6 gm/dL (12.0-15.0); MCH 23.4 pg (26.0-34.0); MCHC 30.9 g/dL (28.0-37.0); MCV 75.8 fL (80.0-100.0); RBC 3.23 mil/uL (4.20-5.00); RDW 21.8 % (10.5-14.5); WBC 17.3 thou/uL (4.0-11.0)
[2016-08-16 06:34] LABS: MANUAL DIFF YES
[2016-08-16 06:46] LABS: ALBUMIN 2.4 g/dL (3.4-5.0); CALCIUM 7.8 mg/dL (8.5-10.1); CREATININE 1.8 mg/dL (0.6-1.0); MAGNESIUM 1.4 mg/dL (1.8-2.4); PHOSPHORUS 3.8 mg/dL (2.5-4.9); POTASSIUM 3.6 mmol/L (3.5-5.1); TOTAL BILIRUBIN 0.3 mg/dL (<0.1-1.0); TOTAL PROTEIN 5.7 g/dL (6.4-8.2)
[2016-08-16 07:30] LABS: ABSOLUTE NEUTROPHILS 14.4 thou/uL (1.4-8.2); TOTAL CELL COUNT 100
[2016-08-16 07:32] LABS: ANISOCYTOSIS 2+; MICROCYTES 2+; OVALOCYTES FEW
[2016-08-16 08:17] LABS: PLATELET COUNT 198 thou/uL (150-400)
[2016-08-16 08:40] VITALS: BP 132/56
[2016-08-16 11:38] LABS: URINE BLOOD 1+ (Negative); URINE GLUCOSE-RANDOM* NEGATIVE (Negative); URINE KETONES NEGATIVE (Negative); URINE NITRITE NEGATIVE (Negative); URINE PROTEIN (DIPSTICK) TRACE (Negative); URINE SPECIFIC GRAVITY 1.025 (1.003-1.035); URINE UROBILINOGEN 0.2 E.U./dl (0.2-1.0)
[2016-08-16 11:41] LABS: ICTOTEST (BILI CONFIRMATORY) Negative (Negative); URINE BILIRUBIN NEGATIVE (Negative); URINE COLOR LIGHT AMBER
[2016-08-16 11:51] LABS: COARSE GRANULAR CASTS 0-3 Few /LPF (None Seen); FINE GRANULAR CASTS 0-3 Few /LPF (None Seen); SQUAMOUS 0-3 Few /LPF (0-3)
[2016-08-16 11:53] LABS: CRYSTALS None Seen /LPF (None Seen); URINE RBC 3-10 Few /HPF (0-2)
[2016-08-16 14:33] VITALS: BP 105/48; BP 116/56
[2016-08-16 18:30] VITALS: BP 116/56; BP 116/59; BP 134/66
[2016-08-16 19:08] LABS: URINE POTASSIUM-RANDOM* 33.5 mmol/L (Not Estab.)
[2016-08-16 20:55] VITALS: BP 120/59
[2016-08-17 05:00] VITALS: BP 113/59
[2016-08-17 06:03] LABS: HEMATOCRIT 30.7 % (37.0-47.0); MCH 25.6 pg (26.0-34.0); MCHC 32.4 g/dL (28.0-37.0); PLATELET COUNT 176 thou/uL (150-400); RBC 3.88 mil/uL (4.20-5.00); RDW 22.2 % (10.5-14.5); WBC 13.3 thou/uL (4.0-11.0)
[2016-08-17 06:09] LABS: MANUAL DIFF YES
[2016-08-17 06:27] LABS: ALBUMIN 2.1 g/dL (3.4-5.0); CALCIUM 7.5 mg/dL (8.5-10.1); CREATININE 1.6 mg/dL (0.6-1.0); MAGNESIUM 1.4 mg/dL (1.8-2.4); PHOSPHORUS 2.9 mg/dL (2.5-4.9); POTASSIUM 3.3 mmol/L (3.5-5.1); TOTAL BILIRUBIN 0.5 mg/dL (<0.1-1.0); TOTAL PROTEIN 5.5 g/dL (6.4-8.2)
[2016-08-17 08:00] VITALS: BP 122/85
[2016-08-17 08:28] LABS: ABSOLUTE NEUTROPHILS 10.9 thou/uL (1.4-8.2); ANISOCYTOSIS 2+; POIKILOCYTOSIS 1+; TOTAL CELL COUNT 100
[2016-08-17 08:29] LABS: HYPOCHROMASIA 1+; MICROCYTES 2+; POLYCHROMASIA OCCASIONAL
[2016-08-17 16:00] VITALS: BP 130/60
[2016-08-17 19:17] VITALS: BP 124/63
[2016-08-18 03:25] VITALS: BP 131/61
[2016-08-18 05:31] LABS: HEMOGLOBIN 9.8 gm/dL (12.0-15.0); MCV 78.4 fL (80.0-100.0)
[2016-08-18 05:33] LABS: HEMATOCRIT 29.5 % (37.0-47.0); MCHC 33.2 g/dL (28.0-37.0); PLATELET COUNT 183 thou/uL (150-400); RBC 3.76 mil/uL (4.20-5.00); RDW 22.3 % (10.5-14.5); WBC 10.6 thou/uL (4.0-11.0)
[2016-08-18 05:40] LABS: MANUAL DIFF YES
[2016-08-18 05:45] LABS: CALCIUM 7.9 mg/dL (8.5-10.1); CREATININE 1.4 mg/dL (0.6-1.0); MAGNESIUM 1.7 mg/dL (1.8-2.4); PHOSPHORUS 2.2 mg/dL (2.5-4.9); POTASSIUM 3.7 mmol/L (3.5-5.1)
[2016-08-18 07:30] VITALS: BP 107/67
[2016-08-18 09:34] LABS: TOTAL CELL COUNT 100
[2016-08-18 09:36] LABS: ANISOCYTOSIS 1+; BURR CELLS FEW; OVALOCYTES FEW; POIKILOCYTOSIS 1+; POLYCHROMASIA SLIGHT
[2016-08-18 09:37] LABS: HYPOCHROMASIA SLIGHT; LARGE PLATELETS OCCASIONAL
[2016-08-18 20:00] VITALS: BP 127/55
[2016-08-19 04:00] VITALS: BP 131/66
[2016-08-19 08:14] VITALS: BP 120/60
[2016-08-19 09:02] LABS: HEMATOCRIT 25.7 % (37.0-47.0); MCH 26.2 pg (26.0-34.0); MCHC 31.2 g/dL (28.0-37.0); RBC 3.06 mil/uL (4.20-5.00); RDW 22.3 % (10.5-14.5); WBC 6.5 thou/uL (4.0-11.0)
[2016-08-19 09:03] LABS: MCV 83.9 fL (80.0-100.0)
[2016-08-19 09:13] LABS: CALCIUM 8.2 mg/dL (8.5-10.1); CREATININE 1.1 mg/dL (0.6-1.0); POTASSIUM 3.9 mmol/L (3.5-5.1)
[2016-08-19 09:56] LABS: PROTIME 10.7 Seconds (9.3-11.4)
[2016-08-19 15:03] LABS: HEMATOCRIT 30.6 % (37.0-47.0); HEMOGLOBIN 9.9 gm/dL (12.0-15.0); MCH 25.9 pg (26.0-34.0); MCHC 32.4 g/dL (28.0-37.0); MCV 79.8 fL (80.0-100.0); RBC 3.84 mil/uL (4.20-5.00); RDW 22.5 % (10.5-14.5); WBC 8.5 thou/uL (4.0-11.0)
[2016-08-19 16:17] VITALS: BP 112/62
[2016-08-19 20:20] VITALS: BP 135/58
[2016-08-20 04:50] VITALS: BP 140/63
[2016-08-20 06:28] LABS: HEMATOCRIT 30.1 % (37.0-47.0); HEMOGLOBIN 9.9 gm/dL (12.0-15.0); MCH 25.9 pg (26.0-34.0); MCV 78.6 fL (80.0-100.0); RBC 3.83 mil/uL (4.20-5.00); RDW 22.3 % (10.5-14.5); WBC 8.8 thou/uL (4.0-11.0)
[2016-08-20 06:42] LABS: CALCIUM 7.9 mg/dL (8.5-10.1); CREATININE 1.4 mg/dL (0.6-1.0); POTASSIUM 3.5 mmol/L (3.5-5.1)
[2016-08-20 08:51] VITALS: BP 139/73
[2016-08-20 16:48] VITALS: BP 129/63
[2016-08-20 20:00] VITALS: BP 143/62
[2016-08-21 04:00] VITALS: BP 143/69
[2016-08-21 06:44] LABS: HEMATOCRIT 31.4 % (37.0-47.0); HEMOGLOBIN 10.2 gm/dL (12.0-15.0); MANUAL DIFF YES; MCH 25.5 pg (26.0-34.0); MCHC 32.3 g/dL (28.0-37.0); PLATELET COUNT 231 thou/uL (150-400); RBC 3.98 mil/uL (4.20-5.00); RDW 22.4 % (10.5-14.5); WBC 12.9 thou/uL (4.0-11.0)
[2016-08-21 07:04] LABS: ALBUMIN 2.1 g/dL (3.4-5.0); ALKALINE PHOSPHATASE 283 U/L (46-116); ANION GAP 14 mmol/L (7-16); BUN 20 mg/dL (7-18); CALCIUM 8.5 mg/dL (8.5-10.1); CHLORIDE 107 mmol/L (98-107); CO2 16 mmol/L (21-32); CREATININE 1.5 mg/dL (0.6-1.0); GLUCOSE 141 mg/dL (74-106); MAGNESIUM 1.5 mg/dL (1.8-2.4); PHOSPHORUS 2.2 mg/dL (2.5-4.9); POTASSIUM 3.5 mmol/L (3.5-5.1); SGOT 25 U/L (15-37); SGPT 19 U/L (30-65); SODIUM 137 mmol/L (136-145); TOTAL BILIRUBIN 0.4 mg/dL (<0.1-1.0); TOTAL PROTEIN 5.7 g/dL (6.4-8.2); TROPONIN-I < 0.04 ng/mL (<0.04-0.07)
[2016-08-21 07:28] VITALS: BP 139/66
[2016-08-21 07:39] LABS: ABSOLUTE NEUTROPHILS 10.8 thou/uL (1.4-8.2); TOTAL CELL COUNT 100
[2016-08-21 07:42] LABS: ANISOCYTOSIS 3+; MICROCYTES 2+; POLYCHROMASIA OCCASIONAL
[2016-08-21 07:43] LABS: OVALOCYTES FEW
[2016-08-21 07:50] LABS: SCHISTOCYTES RARE
[2016-08-21 20:00] VITALS: BP 119/66
[2016-08-22 02:37] LABS: URINE BILIRUBIN NEGATIVE (Negative); URINE BLOOD 2+ (Negative); URINE COLOR YELLOW; URINE GLUCOSE-RANDOM* NEGATIVE (Negative); URINE KETONES NEGATIVE (Negative); URINE LEUKOCYTES-REFLEX NEGATIVE (Negative); URINE PROTEIN (DIPSTICK) NEGATIVE (Negative); URINE SPECIFIC GRAVITY <= 1.005 (1.003-1.035); URINE UROBILINOGEN 0.2 E.U./dl (0.2-1.0)
[2016-08-22 03:29] LABS: CASTS None Seen /LPF (None Seen); CRYSTALS None Seen /LPF (None Seen); SQUAMOUS 0-3 Few /LPF (0-3); URINE RBC 3-10 Few /HPF (0-2); URINE WBC-REFLEX None Seen /HPF (0-5)
[2016-08-22 04:30] VITALS: BP 130/74
[2016-08-22 05:12] LABS: HEMATOCRIT 32.8 % (37.0-47.0); HEMOGLOBIN 10.5 gm/dL (12.0-15.0); MCH 25.1 pg (26.0-34.0); MCHC 32.1 g/dL (28.0-37.0); MCV 78.5 fL (80.0-100.0); RBC 4.19 mil/uL (4.20-5.00); RDW 23.2 % (10.5-14.5); WBC 12.5 thou/uL (4.0-11.0)
[2016-08-22 05:25] LABS: ALBUMIN 2.2 g/dL (3.4-5.0); CALCIUM 8.5 mg/dL (8.5-10.1); CREATININE 1.6 mg/dL (0.6-1.0); MAGNESIUM 1.8 mg/dL (1.8-2.4); PHOSPHORUS 2.8 mg/dL (2.5-4.9); POTASSIUM 3.5 mmol/L (3.5-5.1); TOTAL BILIRUBIN 0.4 mg/dL (<0.1-1.0); TOTAL PROTEIN 6.1 g/dL (6.4-8.2)
[2016-08-22 05:40] LABS: MANUAL DIFF YES
[2016-08-22 07:23] LABS: ABSOLUTE NEUTROPHILS 10.3 thou/uL (1.4-8.2); TOTAL CELL COUNT 100
[2016-08-22 07:24] LABS: ANISOCYTOSIS 3+; MICROCYTES 1+; PLATELET COUNT 270 thou/uL (150-400)
[2016-08-22 07:25] LABS: OVALOCYTES 1+; POLYCHROMASIA OCCASIONAL
[2016-08-22 08:04] VITALS: BP 124/79
[2016-08-22 09:58] LABS: PROTIME 10.1 Seconds (9.3-11.4)
[2016-08-22 15:08] LABS: BODY FLUID CREATININE 1.6 mg/dL (())
[2016-08-22 16:06] VITALS: BP 147/63
[2016-08-22 20:15] VITALS: BP 135/56
[2016-08-23 04:00] VITALS: BP 138/70
[2016-08-23 04:00] LABS: PROTIME 10.6 Seconds (9.3-11.4)
[2016-08-23 04:21] LABS: ALBUMIN 1.9 g/dL (3.4-5.0); CALCIUM 8.3 mg/dL (8.5-10.1); CREATININE 1.9 mg/dL (0.6-1.0); MAGNESIUM 1.7 mg/dL (1.8-2.4); POTASSIUM 3.4 mmol/L (3.5-5.1); TOTAL BILIRUBIN 0.3 mg/dL (<0.1-1.0); TOTAL PROTEIN 5.5 g/dL (6.4-8.2)
[2016-08-23 07:34] VITALS: BP 153/65
[2016-08-23 10:14] LABS: HEMATOCRIT 29.3 % (37.0-47.0); HEMOGLOBIN 9.6 gm/dL (12.0-15.0)
[2016-08-23 15:48] VITALS: BP 131/46
[2016-08-23 20:00] VITALS: BP 136/72
[2016-08-24 05:06] VITALS: BP 123/65
[2016-08-24 05:22] LABS: HEMOGLOBIN 10.3 gm/dL (12.0-15.0); MCH 25.8 pg (26.0-34.0); MCHC 33.3 g/dL (28.0-37.0); MCV 77.7 fL (80.0-100.0); RBC 3.99 mil/uL (4.20-5.00); RDW 23.9 % (10.5-14.5)
[2016-08-24 05:32] LABS: INR 1.4; PROTIME 14.1 Seconds (9.3-11.4)
[2016-08-24 05:37] LABS: CALCIUM 8.3 mg/dL (8.5-10.1); CREATININE 1.4 mg/dL (0.6-1.0); MAGNESIUM 1.6 mg/dL (1.8-2.4); PHOSPHORUS 3.4 mg/dL (2.5-4.9); POTASSIUM 3.3 mmol/L (3.5-5.1)
[2016-08-24 07:36] VITALS: BP 140/57
[2016-08-24 15:47] VITALS: BP 131/66
[2016-08-24 20:00] VITALS: BP 127/53
[2016-08-25 04:44] VITALS: BP 135/54
[2016-08-25 05:55] LABS: HEMATOCRIT 27.1 % (37.0-47.0); HEMOGLOBIN 9.2 gm/dL (12.0-15.0); MCH 26.7 pg (26.0-34.0); MCV 78.7 fL (80.0-100.0); RBC 3.44 mil/uL (4.20-5.00); RDW 23.9 % (10.5-14.5); WBC 8.4 thou/uL (4.0-11.0)
[2016-08-25 06:09] LABS: ALBUMIN 1.7 g/dL (3.4-5.0); CALCIUM 7.9 mg/dL (8.5-10.1); CREATININE 1.2 mg/dL (0.6-1.0); PHOSPHORUS 3.2 mg/dL (2.5-4.9); POTASSIUM 3.2 mmol/L (3.5-5.1)
[2016-08-25 06:11] LABS: PROTIME 24.5 Seconds (9.3-11.4)
[2016-08-25 06:12] LABS: INR 2.4
[2016-08-25 07:46] VITALS: BP 134/62
[2016-08-25 15:25] VITALS: BP 131/45
[2016-08-25 20:00] VITALS: BP 120/37
[2016-08-26 04:30] VITALS: BP 154/70
[2016-08-26 05:53] LABS: INR 2.5; PROTIME 25.8 Seconds (9.3-11.4)
[2016-08-26 05:54] LABS: ALBUMIN 1.9 g/dL (3.4-5.0); CALCIUM 8.2 mg/dL (8.5-10.1); PHOSPHORUS 2.9 mg/dL (2.5-4.9); POTASSIUM 3.3 mmol/L (3.5-5.1)
[2016-08-26 07:21] VITALS: BP 157/56
[2016-08-26] MEDS ORDERED: COLACE 100 MG100 MG PO (10:34)
[2016-08-26] MEDS ORDERED: CEFDINIR300 MG PO (10:34)
[2016-08-26] MEDS ORDERED: PANTOPRAZOLE SO40 M1 PO (10:34)
[2016-08-26] MEDS ORDERED: LOPRESSOR50 PO (10:34)
[2016-08-26] MEDS ORDERED: COUMADIN 3 MG TA3 M1 PO (10:34)
[2016-08-26 15:29] VITALS: BP 156/73
[2016-08-26 19:20] VITALS: BP 148/55
[2016-08-27 03:51] VITALS: BP 150/55
[2016-08-27 06:12] LABS: HEMOGLOBIN 9.5 gm/dL (12.0-15.0); MCH 25.9 pg (26.0-34.0); MCHC 32.8 g/dL (28.0-37.0); MCV 78.8 fL (80.0-100.0); RBC 3.67 mil/uL (4.20-5.00); RDW 24.5 % (10.5-14.5); WBC 7.4 thou/uL (4.0-11.0)
[2016-08-27 06:23] LABS: ALBUMIN 1.9 g/dL (3.4-5.0); CALCIUM 8.1 mg/dL (8.5-10.1); CREATININE 0.9 mg/dL (0.6-1.0); PHOSPHORUS 2.5 mg/dL (2.5-4.9); POTASSIUM 3.1 mmol/L (3.5-5.1)
[2016-08-27 07:54] VITALS: BP 138/57
[2016-08-27 10:48] LABS: INR 2.5; PROTIME 26.1 Seconds (9.3-11.4)
== END 2016-08-27 13:53 | DRG 329 ==
LOC: ER 14:50 → EROBS 16:29 → 3N 16:29 → 4E 08-23 14:57
PROVIDERS: Emergency Medicine; Hospitalist; Internal Medicine; Internal Medicine Gastroenterology; Internal Medicine Hematology & Oncology; Otolaryngology
PROC: 30233N1 Transfusion of Nonautologous Red Blood Cells into Peripheral Vein, Percutaneous Approach (ICD-10-PCS; 2016-08-10)
PROC: 0DBM8ZZ Excision of Descending Colon, Via Natural or Artificial Opening Endoscopic (ICD-10-PCS; 2016-08-12)
PROC: 0DBK8ZX Excision of Ascending Colon, Via Natural or Artificial Opening Endoscopic, Diagnostic (ICD-10-PCS; 2016-08-12)
PROC: 0D718ZZ Dilation of Upper Esophagus, Via Natural or Artificial Opening Endoscopic (ICD-10-PCS; 2016-08-12)
PROC: 06H03DZ Insertion of Intraluminal Device into Inferior Vena Cava, Percutaneous Approach (ICD-10-PCS; principal; 2016-08-13)
PROC: 0DTF4ZZ Resection of Right Large Intestine, Percutaneous Endoscopic Approach (ICD-10-PCS; 2016-08-14)
DX: C18.2 Malignant neoplasm of ascending colon (principal); I26.99 Other pulmonary embolism without acute cor pulmonale; J18.9 Pneumonia, unspecified organism; N17.0 Acute kidney failure with tubular necrosis; K92.2 Gastrointestinal hemorrhage, unspecified; D62 Acute posthemorrhagic anemia; B15.9 Hepatitis A without hepatic coma; J45.909 Unspecified asthma, uncomplicated; E11.9 Type 2 diabetes mellitus without complications; I10 Essential (primary) hypertension; E78.00 Pure hypercholesterolemia, unspecified; M81.0 Age-related osteoporosis without current pathological fracture; E78.5 Hyperlipidemia, unspecified; K64.8 Other hemorrhoids; K44.9 Diaphragmatic hernia without obstruction or gangrene; K29.70 Gastritis, unspecified, without bleeding; D12.4 Benign neoplasm of descending colon; E66.09 Other obesity due to excess calories; D50.9 Iron deficiency anemia, unspecified; R19.7 Diarrhea, unspecified; K74.60 Unspecified cirrhosis of liver; K22.2 Esophageal obstruction; I27.2 Other secondary pulmonary hypertension; R60.1 Generalized edema; Z60.2 Problems related to living alone; Z88.0 Allergy status to penicillin; Z98.42 Cataract extraction status, left eye; Z98.41 Cataract extraction status, right eye; Z79.899 Other long term (current) drug therapy; Z86.010 Personal history of colon polyps; Z68.27 Body mass index [BMI] 27.0-27.9, adult; Z80.0 Family history of malignant neoplasm of digestive organs
CPT/HCPCS: 10096; 10183; 23012; 50010; 50093; 50101; 50221; 50249; 50331; 50386; 50455; 50555; 50944; 50953; 50962; 51412; 51435; 51489; 51708; 51712; 52265; 52266; 54105; 54118; 56525; 56526; 56530; 57092; 62110; 62900; 70005